=== PATIENT | female | born 1970 | race Hispanic/Latino ===

== ENCOUNTER 2021-04-01 22:17 | Emergency (ER) | payer OTHER ==
[~2021-04-01] VITALS: Ht 154.9 cm; Wt 66.0 kg
[2021-04-01] MEDS ORDERED: AMOXICILLIN500 MG (22:45)
[2021-04-01] MEDS ORDERED: TESSALON PERLE100 MG (22:45)
[2021-04-01] MEDS ORDERED: ONDANSETRON ODT4 MG (22:45)
[2021-04-01] MEDS ORDERED: PROMETHAZINE HC25 M1 PO (23:31)
== END 2021-04-01 23:45 | disposition home or self-care (01) ==
LOC: ED 22:17
DX: U07.1 COVID-19 (principal); K29.70 Gastritis, unspecified, without bleeding; Z88.8 Allergy status to other drugs, medicaments and biological substances; Z79.899 Other long term (current) drug therapy
CPT/HCPCS: 80053; 81001; 85025; 96374; 99284-25; J2550

== ENCOUNTER 2021-04-03 15:45 | Emergency (ER) | payer OTHER ==
[~2021-04-03] VITALS: Ht 154.9 cm; Wt 66.1 kg
[~2021-04-03 15:45] MED LIST: AMOXICILLIN500 MG; ONDANSETRON ODT4 MG; PROMETHAZINE HC25 M1 PO; TESSALON PERLE100 MG
--- OUTSIDE RECORDS SUMMARY | 2021-04-03 15:48 | XMS ---
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 April has no Care Guidelines for this patient. [facility] (12 MO.) [facility] NOTE: Visits indicate total known visits. ED/C VISIT TRACKING (12 MO.) [facility] COMPLAINT: - ABDOMINAL PAIN 04/01/2021 22:19 [facility] TYPE: Emergency COMPLAINT: - ABD PAIN, FEVER INPATIENT VISIT TRACKING (12 MO.) No inpatient visits to display in this time frame [email or web address]
[2021-04-03] MEDS ORDERED: REGLAN10 MG PO (20:01)
--- NOTE | 2021-04-04 18:09 | EKG ---
[facility] [address] [facility] [place], [place] [address] Signed Normal sinus rhythm Normal ECG No previous ECGs available Confirmed by CATALINO CAR MD ([id number] on 04/04/2021 6:09:40 PM Electronically Signed By: CATALINO CAR MD 04/04/21 1809 PATIENT NAME: TRIXIEUYEN Bradshaw Electrocardiogram DATE OF : 74 PHYSICIAN: CATALINO CAR MD REPORT #: [id number] REPORT IS CONFIDENTIAL AND NOT TO BE RELEASED WITHOUT AUTHORIZATION
== END 2021-04-03 20:19 | disposition home or self-care (01) ==
LOC: ED 15:45
DX: U07.1 COVID-19 (principal); K29.70 Gastritis, unspecified, without bleeding; Z88.8 Allergy status to other drugs, medicaments and biological substances; Z79.899 Other long term (current) drug therapy
CPT/HCPCS: 80053; 81001; 83735; 84703; 85025; 93005; 93010; 96374; 99284-25; J2405; J7040